=== PATIENT | female | born 2000 | race Caucasian/White ===

== ENCOUNTER 2022-08-18 13:19 | Emergency (ER) | payer BC, SELFPAY ==
--- NOTE | 2022-08-18 13:25 | ED.URI ---
HPI - URI/Sore Throat General Chief Complaint: Upper Respiratory Infection Stated Complaint: COUGH Time Seen by Provider: 08/18/22 13:35 Source: patient Mode of arrival: ambulatory Limitations: no limitations History of Present Illness HPI Narrative: Quin is a 22-year-old female patient presenting to clinic today with complaints of a cough and runny nose times 2 weeks. She reports she just got over the having the flu last week and finished taking her Tamiflu however she still have a cough and runny nose. She reports that she coughs so hard that she is bringing up fragments of blood in her sputum MD elicited complaint: cough and nasal congestion Related Data Home Medications Medication Instructions Recorded Confirmed spironolactone 50 mg tablet 75 mg PO DAILY 07/02/22 08/18/22 Allergies Allergy/AdvReac Type Severity Reaction Status Date / Time No Known Allergies Allergy Unverified 08/18/22 13:34 Review of Systems Review of Systems: Pertinent positives per HPI. Patient denies any fever, chills, rash, headache, visual changes, dizziness, cough, shortness of breath, chest pain, palpitations, nausea, vomiting, diarrhea, constipation, abdominal pain, or any urinary issues. [facility] Social History Social History Smoking status: Never smoker Alcohol intake: current Substance use: never Substance use type: does not use Gender identity (if verbalized by the patient): Female Comments At the time of my signature, I reviewed and agree with the nursing past medical, surgical, social, and family history. There is no relevant family history pertinent to the patient complaint. Exam Narrative: General: Well-developed, well nourished, in no apparent distress Head: Normocephalic, atraumatic Eyes: Pupils equally round and reactive to light bilaterally, EOM intact, sclera and conjunctive clear, no discharge, lids normal Ears: TMs intact and clear, ear canals clear, no drainage, grossly hearing normal. Nose: Nares patent, clear nasal discharge, no inflammation, no sinus tenderness. Mouth: Oral pharynx without lesions or masses, good dentition, MMM. Postnasal drip Neck: Supple, trachea midline, no enlargement of anterior or posterior cervical nodes, no thyroid masses or goiter palpable. Cardio: Regular rate and rhythm, s1 and s2 normal, no murmur appreciated. Resp: Clear to auscultation bilaterally, no rhonchi, rales, wheezing or rubs Course Course Emergency Course: Portions of this record may have been created with voice recognition software. Level of Care: Express Care Visit Vital Signs Vital signs: Vital Signs Temperature 37.1 C 08/18/22 13:29 Pulse Rate 58 L 08/18/22 13:29 Respiratory Rate 18 08/18/22 13:29 Blood Pressure 103/71 08/18/22 13:29 Pulse Oximetry 99 08/18/22 13:29 Oxygen Delivery Room Air 08/18/22 13:29 Temperature 37.1 C 08/18/22 13:29 Pulse Rate 58 L 08/18/22 13:29 Respiratory Rate 18 08/18/22 13:29 Blood Pressure 103/71 08/18/22 13:29 Pulse Oximetry 99 08/18/22 13:29 Oxygen Delivery Room Air 08/18/22 13:29 Vital signs reviewed MDM - URI/Sore Throat MDM Narrative Medical decision making narrative: At the time of visit patient is resting comfortably on the exam table. I suspect that she has post viral cough/postnasal drip. Will send in prescription for prednisone to help dry up secretions and help with the cough. Supportive measures were discussed with the patient she voiced understanding of discharge instructions and agrees to treatment plan. Differential Diagnosis Differential diagnosis: Likely upper respiratory infection, otitis media, sinusitis, viral infection, bronchitis, influenza, pharyngitis and other (Covid) Discharge Plan Discharge Clinical Impression: Post-viral cough syndrome, Post-nasal drip Patient Disposition: Home, Self-Care Condition: Stable Instructi
[2022-08-18 13:29] VITALS: BP 103/71; PULSE 58; RESP 18; TEMP 37.1; O2SAT 99
== END 2022-08-18 13:46 | disposition home or self-care (01) ==
PROVIDERS: Emergency Provider Nurse Practitioner Family; PCP Nurse Practitioner Gerontology
DX: R05.9 Cough, unspecified (principal); R09.82 Postnasal drip
CPT/HCPCS: 99213; G0463